=== PATIENT | female | born 1975 | race Caucasian/White ===

== ENCOUNTER 2017-09-18 07:34 | Emergency (ER) | payer OTHER ==
[~2017-09-18] VITALS: Ht 167.6 cm; Wt 108.3 kg
[~2017-09-18 07:34] MED LIST: DIAMOX PO; IMITREX100 MG PO
[2017-09-18 08:30] LABS: BASOPHIL (%) 0.5 % (0-1); EOSINOPHIL (%) 1.1 % (0-5); EOSINOPHIL COUNT 0.1 K/uL (0-0.3); HEMATOCRIT 42.2 % (36.0-46.0); HEMOGLOBIN 14.5 G/DL (11.9-15.5); IMMATURE GRANULOCYTE (%) 0.5 % (0.0-0.7); LYMPHOCYTE (%) 26.7 % (15-42); LYMPHOCYTE COUNT 2.3 K/uL (1.0-2.8); MCH 30.3 PG (29.0-34.0); MCHC 34.4 G/DL (30.0-36.0); MCV 88.3 FL (83-99); MONOCYTE (%) 6.7 % (3-12); MONOCYTE COUNT 0.6 K/uL (0-0.8); NEUTROPHIL (%) 64.5 % (45-76); NEUTROPHIL COUNT 5.7 K/uL (1.8-6.4); PLATELET COUNT 196 K/uL (156-360); RBC DIS.WIDTH-CV 12.1 % (11.8-14.6); RED BLOOD COUNT 4.78 M/uL (3.80-5.20); WHITE BLOOD COUNT 8.8 K/uL (4.1-10.2)
[2017-09-18 08:40] LABS: CHLORIDE 109 mEq/L (99-109); POTASSIUM 4.2 mEq/L (3.7-5.4); SODIUM 140 mEq/L (136-147)
[2017-09-18 08:41] LABS: GLUCOSE 124 mg/dL (70-99)
[2017-09-18 08:44] LABS: PTT 27.4 SEC (25-37)
[2017-09-18 08:45] LABS: CREATININE 0.8 mg/dL (0.6-1.3); GFR ESTIMATE (CALCULATED) > 59 mL/min/
[2017-09-18 08:46] LABS: UREA NITROGEN (BUN) 13 mg/dL (9-23)
[2017-09-18 08:50] LABS: TROP-I INTERPRETATION NEGATIVE; TROPONIN-I < 0.01 ng/mL (0.0-0.30)
[2017-09-18] MEDS ORDERED: ANTIVERT25 MG PO (12:05)
[2017-09-18 12:19] VITALS: BP 126/70
== END 2017-09-18 12:20 | disposition home or self-care (01) ==
LOC: EME 07:34
PROVIDERS: Emergency Medicine
DX: R42 Dizziness and giddiness (principal); R20.0 Anesthesia of skin; Z88.0 Allergy status to penicillin
CPT/HCPCS: 70450; 70551; 71045; 80048; 84484; 85025; 85610; 85730; 93005; 99281; 99285